=== PATIENT | female | born 1970 | race Caucasian/White ===

== ENCOUNTER → 2016-11-22 | Outpatient (CLI) | payer OTHER ==
--- NOTE | 2016-11-22 12:36 | RADIOLOGY REPORT (SQ) ---
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 TECHNIQUE: Axial images acquired through the brain without intravenous contrast. Images reviewed wi th bone, brain and subdural windows. Images stored on PACS. All CT scanners at this facility use dose modulation, iterative reconstruction, and/or weight based d osing when appropriate to reduce radiation dose to as low as reasonably achievable (ALARA). [facility]: Dose Right [facility]: CareDose [facility]: Dose Right [facility]: Teradose 4D [facility]: Smart Searchles RADIATION DOSE: Up-to-date CT equipment and radiation dose reduction techniques were employed. CTDIv ol: 49.0 mGy. DLP: 881 mGy-cm. mGy. LIMITATIONS: None. FINDINGS: VENTRICLES: Normal size and contour. CEREBRUM: No masses. No hemorrhage. No midline shift. Normal gonzalez/white matter differentiation. N o evidence for acute infarction. CEREBELLUM: No masses. No hemorrhage. No alteration of density. No evidence for acute infarction. EXTRAAXIAL SPACES: No fluid collections. No masses. ORBITS AND GLOBE: No intra- or extraconal masses. Normal contour of globe without masses. CALVARIUM: No fracture. PARANASAL SINUSES: No fluid or mucosal thickening. SOFT TISSUES: No mass or hematoma. OTHER: No other significant finding. IMPRESSION: NORMAL BRAIN CT WITHOUT CONTRAST. TECHNICAL DOCUMENTATION: JOB ID: [id number] Quality ID # 436: Final reports with documentation of one or more dose reduction techniques (e.g., Au tomated exposure control, adjustment of the mA and/or kV according to patient size, use of iterative reconstruction technique) 2010 [employer]- All Rights Reserved
== END ==
LOC: RAD 12:06
PROVIDERS: ATTEND Nurse Practitioner Family
DX: G44.011 Episodic cluster headache, intractable (principal)
CPT/HCPCS: 70450

== ENCOUNTER → 2017-11-16 | Day surgery (SDC) | payer OTHER ==
[~2017-11-16] MED LIST: LIDOCAINE 1%/EPINEPHRINE INJ 20 ML VIAL ONE
--- NOTE | 2017-11-16 11:42 | Discharge Summary ---
Discharge Summary (SDC) - Discharge Final Diagnosis: Microcalcifications left breast Date of Surgery: 11/16/17 Discharge Date: 11/16/17 Condition: Good Treatment or Instructions: Wear supportive bra; follow-up with [facility], Dr. Harry , in 1 week; patient did take Tylenol or Motrin as needed pain Referrals: JENNA JOSE, SUPERVISOR METALIZING [Primary Care Provider] - Discharge Diet: As Tolerated Discharge Activity: Activity As Tolerated Home Care Assistance: None Needed Report the Following to Your Physician Immediately: Shortness of Breath, Increase in Pain, Fever over 101 Degrees
--- NOTE | 2017-11-16 11:46 | Operative Report ---
Operative Report DATE OF SURGERY: 11/16/17 PREOPERATIVE DIAGNOSIS: Microcalcifications left breast POSTOPERATIVE DIAGNOSIS: Same OPERATION: Stereotactically directed incisional myomotomy and core biopsies left breast; interpretation of intraoperative mammography; placement of clip marker left breast 1 o'clock position SURGEON: SAMMY HARDY ANESTHESIA: Local TISSUE REMOVED OR ALTERED: Multiple coarse left breast COMPLICATIONS: None ESTIMATED BLOOD LOSS: Scant PROCEDURE: Patient was taken from the radiology waiting area to the stereotactic procedure room where the left breast was placed in compression. A CC approach was taken and the suspicious area of microcalcifications 1 o'clock position central breast was localized. Surgical plan surgical timeout conducted. Left breast surface was prepped with Betadine and anesthetized with 1% lidocaine with epinephrine. A mammotomy was made with 11 blade, and the mammotome advanced to the appropriate depth. Pre-and post fire film showed excellent localization of the mammotome to the microcalcifications. We now performed stereotactically directed biopsy in a circumferential fashion obtaining approximately 12 cores. The cores were placed in a Nallely dish in the imaged using the portable imaging device. Target microcalcifications were present in multiple cores. We now placed a clip marker in the breast and concluding photographs showed evacuation of microcalcifications from the target area and retention of the clip marker at the biopsy cavity. Result the operation was complete. Patient tolerated procedure well. Discharge instructions provided.
== END ==
LOC: RAD 10:08
PROVIDERS: ATTEND Surgery
DX: R92.0 Mammographic microcalcification found on diagnostic imaging of breast (principal); Z80.3 Family history of malignant neoplasm of breast; N62 Hypertrophy of breast; N60.22 Fibroadenosis of left breast
CPT/HCPCS: 88342 ×2; 88341 ×2; 88305 ×2; 19081; J3490

== ENCOUNTER → 2018-01-19 | Outpatient (CLI) | payer OTHER ==
--- NOTE | 2018-01-19 13:14 | RADIOLOGY REPORT (SQ) ---
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 RENAL FUNCTION: None required. The patient is less than 50 years old. TECHNIQUE: MR imaging performed with a dedicated breast coil. Pre contrast T1 and T2 weighted images . Pre contrast and post contrast enhanced T1 weighted images with fat saturation. Subtraction images, 3D thick and thin MIPS, and kinetic analysis performed on an independent workstat ion. ([employer] workstation) Magnet strength: 1.5 T LIMITATIONS: None. FINDINGS: BREAST DENSITY: b. There are scattered areas of fibroglandular density. BACKGROUND PARENCHYMAL ENHANCEMENT:Minimal. RIGHT BREAST: No enhancing or suspicious masses. No clumped, regional/segmental ductal enhancement. 10 mm retroareolar simple breast cyst 12 o'clock position, 8 mm retroareolar simple breast cyst 7 o 'clock position CHEST WALL: Normal tissue planes. No abnormal internal mammary nodes. AXILLA: Normal axillary and retro-pectoral nodes. LEFT BREAST:No enhancing or suspicious masses. No clumped, regional/segmental ductal enhancement. Biopsy clip left breast 12 to 1 o'clock position 5 cm from the nipple on axial T1 image 102. No asso ciated masses or enhancement. Multiple less than 1 cm central retroareolar breast parenchymal cysts. CHEST WALL: Normal tissue planes. No abnormal internal mammary nodes. AXILLA: Normal axillary and retro-pectoral nodes. OTHER:No identified liver, bone, or lung lesions. No other significant incidental findings. IMPRESSION: NORMAL MR OF THE BREASTS. BIRAD: RIGHT BREAST: 2 Benign findings. LEFT BREAST: 2 Benign findings. RECOMMENDATION: RECOMMENDED FOLLOW-UP: As per Dr. Harry TECHNICAL DOCUMENTATION: JOB ID: [id number] [employer]- All Rights Reserved Reading location - IP/workstation name: [email or web address]
== END ==
LOC: RAD 01-10 09:51
PROVIDERS: ATTEND Surgery
DX: N60.02 Solitary cyst of left breast (principal); N60.01 Solitary cyst of right breast
CPT/HCPCS: A9576; C8906; 77059

== ENCOUNTER 2018-02-15 09:44 | Day surgery (SDC) | payer OTHER ==
[2018-02-12 09:23] LABS: HEMATOCRIT 40.8 % (36.0-47.0); HEMOGLOBIN 13.9 g/dL (12.0-15.5); MEAN CORPUSCULAR HEMOGLOBIN 30.6 pg (27.0-33.4); MEAN CORPUSCULAR HGB CONC 34.2 g/dL (32.0-36.0); MEAN CORPUSCULAR VOLUME 89 fl (80-97); PLATELET COUNT 229 10^3/uL (150-450); RED BLOOD COUNT 4.56 10^6/uL (3.72-5.28); RED CELL DISTRIBUTION WIDTH 13.7 % (11.5-14.0); WHITE BLOOD COUNT 5.2 10^3/uL (4.0-10.5)
--- NOTE | 2018-02-12 13:18 | EKG REPORT ---
SEVERITY:- ABNORMAL ECG - SINUS RHYTHM VENTRICULAR PREMATURE COMPLEXES BORDERLINE INFERIOR Q WAVES BORDERLINE T ABNORMALITIES, ANTERIOR LEADS : Confirmed by: Jensen Ferreira MD 12-Feb-2018 13:17:24
[~2018-02-15 09:44] MED LIST changes: +CEFAZOLIN 1 GM/D5W RTU 1 GM/50 ML RTUPB IV ONE; +CEFAZOLIN 1 GM/D5W RTU 1 GM/50 ML RTUPB IV PRN; +DEXAMETHASONE SOD PHOSPHATE INJ 4 MG/1 ML VIAL ONE; +LACTATED RINGERS 1000 ML IV PRN; +LIDOCAINE 0.5% INJ-PF (5 MG/ML) 50 ML SDV SUBCUT PRN; -LIDOCAINE 1%/EPINEPHRINE INJ 20 ML VIAL ONE; +ONDANSETRON HCL INJ/PF 4 MG/2 ML SDV ONE
[2018-02-15] MEDS ORDERED: LIDOCAINE 1% INJ-PF (10 MG/ML) 30 ML SDV ONE (09:58)
[2018-02-15] MEDS ORDERED: LIDOCAINE 1%/EPINEPHRINE INJ 20 ML VIAL ONE (10:49)
[2018-02-15] MEDS ORDERED: MICROFIBRILLAR COLLAGEN 1 GM PACK ONE (10:49)
[2018-02-15] MEDS ORDERED: MIDAZOLAM 2 MG/2 ML INJ ONE (12:21)
[2018-02-15] MEDS ORDERED: MORPHINE SULFATE 10 MG/ML INJ ONE (12:21)
[2018-02-15] MEDS ORDERED: FENTANYL CITRATE INJ/PF 100 MCG/2 ML AMPUL ONE (12:21)
[2018-02-15] MEDS ORDERED: PROPOFOL INJ 200 MG/20 ML VIAL IV ONE (12:21)
[2018-02-15] MEDS ORDERED: DIPHENHYDRAMINE HCL 50 MG/ML VIAL IV PRN (12:51)
[2018-02-15] MEDS ORDERED: PROMETHAZINE HCL INJ 25 MG/1 ML VIAL IV PRN ×2 (12:51)
[2018-02-15] MEDS ORDERED: MORPHINE SULFATE 10 MG/ML INJ IV PRN (12:51)
[2018-02-15] MEDS ORDERED: OXYCODONE-ACETAMINOPHEN 5-325 MG TABLET PO PRN ×3 (12:51→13:28)
[2018-02-15] MEDS ORDERED: MEPERIDINE HCL/PF INJ 25 MG/1 ML DISP.SYRIN IV PRN (12:51)
[2018-02-15] MEDS ORDERED: FENTANYL CITRATE INJ/PF 100 MCG/2 ML AMPUL IV PRN ×3 (12:51)
--- NOTE | 2018-02-15 13:28 | Discharge Summary ---
Discharge Summary (SDC) - Discharge Final Diagnosis: Left breast cancer Date of Surgery: 02/15/18 Discharge Date: 02/15/18 Condition: Stable Treatment or Instructions: [facility] [address], [place] [address] Care Instructions Following Your Lumpectomy Activities: Resume normal activities when you feel comfortable. It is best to remain as active as possible to speed your recovery. It is common to experience some fatigue after surgery and you may find that short naps are helpful. Avoid strenuous activity such as weight lifting, tennis, etc at your surgical site for two weeks. Perform gentle arm exercises daily and do not favor your operative arm to due increased risk of mobility issues postoperatively. No driving for 7 days after surgery. Do not drive if you are taking pain medication other than Tylenol or Ibuprofen. No swimming, tub baths or soaking in a hot tub for 4 weeks. There are no dietary restrictions. Do not smoke as this impairs wound healing. Surgical Site care: You may shower in 24 hours to include washing the wound with soap and water using your hands. Leave skin glue intact. Do not scrub the incision. Pat the area dry with a towel. You do not need to recover the wound although some patients find that they feel more comfortable using a light dressing for a few days to absorb any minimal drainage which may occur. Many patients also find that keeping a dressing around the drain exit site is helpful to absorb any drainage which may leak around the tubing. If you use a dressing in this manner change it at least every day. Do not use heating pad or apply an ice pack to the operative site. You may apply deodorant if you are careful to avoid getting it on the wound itself. Medications: Take Motrin (ibuprofen) 600 mg to 800 mg every 8 hours around the clock. You may taper this medication as you experience less pain. Take Toradol 10 mg one pill by mouth every six hours as needed for pain. Resume all of your normal prescription medications after your surgery unless instructed otherwise. You may experience constipation after surgery while taking pain medications. If using a narcotic on a regular basis, take a stool softener such as Colace twice a day. It is helpful to stay hydrated by drinking lots of fluids. Walking is also helpful and is good exercise after surgery. If you need extra help, use Milk of Magnesia according to the directions on the package. Follow-up: Call our office at to make a follow-up appointment in 10-14 days. Your doctor will call to discuss the pathology report with you as soon as it is available. Concerns: Some bruising may occur and will go away over time. If you have a fever of 101.5 or greater, chills, redness at the incision site, excessive drainage from your wound or severe pain not relieved by pain medication, call your doctor. A physician is available 24 hours a day 7 days a week in addition to regular office hours. If problems arise after normal office hours please call the hospital at . Please call if you have any questions or concerns. Prescriptions: Ketorolac Tromethamine [Toradol 10 mg Tablet] 10 mg PO Q6HP PRN #20 tablet PRN Reason: Referrals: JENNA JOSE FHA UNDERWRITER [Primary Care Provider] - Discharge Diet: As Tolerated Discharge Activity: Walk Frequently Report the Following to Your Physician Immediately: Fever over 101 Degrees, Unusual Bleeding, Redness, Swelling, Warmth, Drainage-Foul Smelling
--- NOTE | 2018-02-15 13:29 | Operative Report ---
Operative Report DATE OF SURGERY: 02/15/18 PREOPERATIVE DIAGNOSIS: 1. Atypical ductal hyperplasia left breast with microcalcification. 2. Strong family history of breast cancer POSTOPERATIVE DIAGNOSIS: Same OPERATION: 1. Needle localized open left breast biopsy. 2. Interpretation of intraoperative specimen radiograph SURGEON: SAMMY HARRY 1ST DIRECTOR FINANCIAL PLANNING: SOLEDAD JAIMES ANESTHESIA: GA TISSUE REMOVED OR ALTERED: Left open breast biopsy specimen, wires and clip marker COMPLICATIONS: None ESTIMATED BLOOD LOSS: Scant INTRAOPERATIVE FINDINGS: See below PROCEDURE: The patient was seen in the preop holding area after having undergone needle localization of the the stereotactically placed clip in the left breast, as well as microcalcifications by Dr. Waldrop. 2 needles were placed in the craniocaudal direction, and reviewed by Dr. Harry. The patient was then taken to the main operating room where general anesthesia was induced. Left arm was abducted, needle hub was clipped with wire brush operator, and left breast prepped and draped in sterile fashion. Surgical plan surgical timeout were conducted. The skin was Doretha times with the quarter percent Marcaine. An Approximately 4 cm incision was made in curvilinear fashion encompassing the previous stereotactic biopsy wound, and both needles. Superior inferior medial and lateral skin flaps were raised with electrocautery dissection. Using intraoperative review of preop radiographs as a guide, we performed a central breast lumpectomy approximately 4 x 6 x 6 cm including both needles, both wires. The specimen was then removed from the left breast, labeled with a short suture in the superior position, long suture in the lateral position. We then performed intraoperative specimen radiograph of the portable machine. 2 images were taken one with the specimen in the anatomic position, and the second radiograph rotating the specimen to the patient's right side by 90 degrees. The radiographs demonstrate a retention of both localization needles, both wires, and the stereotactic clip marker, as well as several microcalcifications. The specimen interpretation was reviewed with Dr. Waldrop , radiologist, who concurred. We felt the operation was complete. We checked the wound for any bleeding there was none. Sponge and counts are correct. Wounds closed with 3-0 Vicryl Dermabond glue. Patient taught procedure well, taken recovery in stable condition. The physician home care assistant, Ms. Ortega, provided assistance during this case by: Assisting retracting tissue, instillation of local anesthesia and closure of skin incisions.
[2018-02-15] MEDS ORDERED: OXYCODONE-ACETAMINOPHEN 5-325 MG TABLET ONE (14:35)
[2018-02-15 15:25] VITALS: BP 120/79
--- NOTE | 2018-02-22 14:38 | WOMENS IMAGING REPORT ---
EXAM DESCRIPTION: WIRE LOC MAMMO; BREAST SPECIMEN; LEFT DIAGNOSTIC MAMMO W/CAD COMPLETED DATE/TIME: 02/15/2018 4:16 pm; 02/15/2018 1:29 pm; 02/15/2018 11:48 am REASON FOR STUDY: LEFT NEEDLE LOC; LEFT BREAST SPECIMEN BX IN OR; PRE NEEDLE LOCALIZATION R92.[address] Lugo R92.0 MAMMOGRAPHIC MICROCALCIFICATION FOUND ON DX IMAGING OF COMPARISON: Stereotactic biopsy with post biopsy mammograms 11/16/2017 TECHNIQUE: The stereotactic biopsy clip in the left breast was localized mammographically using a g rid marker. The skin of the breast was prepped in sterile fashion and local anesthesia was provided. The localization needle was advanced to the target. The tip was positioned adjacent to the target and confirmed with two orthogonal views. Calcifications in the left breast just ventral to the stere otactic clip form also localized using the grid marker. A 2nd localization needle was advanced to th e calcifications, the tip was positioned adjacent to the calcifications and confirmed with 2 orthogon al views. Surgical dye was not injected for this procedure. The wire was placed through the needle and the hook engaged. Post procedure mammogram demonstrates satisfactory position of the needle and w riaz. Specimen radiograph demonstrates the intact localization wire as well as the targeted lesion within t he biopsy specimen. LIMITATIONS: None. FINDINGS: Procedure as above. Pathology: Ductal carcinoma in situ IMPRESSION: SUCCESSFUL NEEDLE LOCALIZATION OF THE LESION IN THE LEFT BREAST. FOLLOW-UP PER THE P THOMAS'S SURGEON. COMMENT: BI-RADS 6, known malignancy, appropriate action should be taken TECHNICAL DOCUMENTATION: JOB ID: [id number] [employer]- All Rights Reserved Reading location - IP/workstation name: [email or web address]
--- NOTE | 2018-02-22 14:38 | WOMENS IMAGING REPORT ---
EXAM DESCRIPTION: WIRE LOC MAMMO; BREAST SPECIMEN; LEFT DIAGNOSTIC MAMMO W/CAD COMPLETED DATE/TIME: 02/15/2018 4:16 pm; 02/15/2018 1:29 pm; 02/15/2018 11:48 am REASON FOR STUDY: LEFT NEEDLE LOC; LEFT BREAST SPECIMEN BX IN OR; PRE NEEDLE LOCALIZATION R92.[address] Lugo R92.0 MAMMOGRAPHIC MICROCALCIFICATION FOUND ON DX IMAGING OF COMPARISON: Stereotactic biopsy with post biopsy mammograms 11/16/2017 TECHNIQUE: The stereotactic biopsy clip in the left breast was localized mammographically using a g rid marker. The skin of the breast was prepped in sterile fashion and local anesthesia was provided. The localization needle was advanced to the target. The tip was positioned adjacent to the target and confirmed with two orthogonal views. Calcifications in the left breast just ventral to the stere otactic clip form also localized using the grid marker. A 2nd localization needle was advanced to th e calcifications, the tip was positioned adjacent to the calcifications and confirmed with 2 orthogon al views. Surgical dye was not injected for this procedure. The wire was placed through the needle and the hook engaged. Post procedure mammogram demonstrates satisfactory position of the needle and w riaz. Specimen radiograph demonstrates the intact localization wire as well as the targeted lesion within t he biopsy specimen. LIMITATIONS: None. FINDINGS: Procedure as above. Pathology: Ductal carcinoma in situ IMPRESSION: SUCCESSFUL NEEDLE LOCALIZATION OF THE LESION IN THE LEFT BREAST. FOLLOW-UP PER THE P THOMAS'S SURGEON. COMMENT: BI-RADS 6, known malignancy, appropriate action should be taken TECHNICAL DOCUMENTATION: JOB ID: [id number] [employer]- All Rights Reserved Reading location - IP/workstation name: [email or web address]
== END 2018-02-15 15:35 | disposition home or self-care (01) ==
LOC: OROUT 09:44
PROVIDERS: ATTEND Surgery
DX: D05.12 Intraductal carcinoma in situ of left breast (principal); I48.91 Unspecified atrial fibrillation; Z80.3 Family history of malignant neoplasm of breast; G43.909 Migraine, unspecified, not intractable, without status migrainosus; F41.0 Panic disorder [episodic paroxysmal anxiety]
CPT/HCPCS: 93005; 36415; 85027; 81025; 88342 ×2; 88307 ×2; 93010; 19281; 76098; 77065; 19101; J2250; J0690; J1100; J3490 ×2; J2270; J2405; J2704; 400; J3010

== ENCOUNTER → 2018-04-26 | Outpatient (CLI) | payer OTHER ==
[2018-04-26 16:32] LABS: ABSOLUTE EOSINOPHILS # (AUTO) 0.1 10^3/uL (0.0-0.6); ABSOLUTE LYMPHOCYTES (AUTO) 2.2 10^3/uL (0.5-4.7); ABSOLUTE MONOCYTES (AUTO) 0.5 10^3/uL (0.1-1.4); ABSOLUTE NEUT (AUTO) 4.7 10^3/uL (1.7-8.2); BASOPHILS % (AUTO) 0.3 % (0-2); EOSINOPHILS % (AUTO) 0.8 % (0-6); HEMATOCRIT 39.5 % (36.0-47.0); HEMOGLOBIN 13.6 g/dL (12.0-15.5); LYMPHOCYTES % (AUTO) 29.7 % (13-45); MEAN CORPUSCULAR HEMOGLOBIN 30.9 pg (27.0-33.4); MEAN CORPUSCULAR HGB CONC 34.5 g/dL (32.0-36.0); MEAN CORPUSCULAR VOLUME 89 fl (80-97); MONOCYTES % (AUTO) 6.4 % (3-13); PLATELET COUNT 220 10^3/uL (150-450); RED BLOOD COUNT 4.42 10^6/uL (3.72-5.28); RED CELL DISTRIBUTION WIDTH 13.6 % (11.5-14.0); SEGMENTED NEUTROPHILS % (AUTO) 62.8 % (42-78); TOTAL CELLS COUNTED % (AUTO) 100 %; WHITE BLOOD COUNT 7.5 10^3/uL (4.0-10.5)
== END ==
LOC: OD 15:11
PROVIDERS: ATTEND Radiology Radiation Oncology
DX: D05.12 Intraductal carcinoma in situ of left breast (principal); Z17.0 Estrogen receptor positive status [ER+]
CPT/HCPCS: 36415; 85025

== ENCOUNTER 2018-11-21 07:58 | Day surgery (SDC) | payer OTHER ==
[2018-11-07 10:54] LABS: HEMATOCRIT 38.5 % (36.0-47.0); MEAN CORPUSCULAR HEMOGLOBIN 30.3 pg (27.0-33.4); MEAN CORPUSCULAR HGB CONC 33.7 g/dL (32.0-36.0); MEAN CORPUSCULAR VOLUME 90 fl (80-97); PLATELET COUNT 185 10^3/uL (150-450); RED BLOOD COUNT 4.27 10^6/uL (3.72-5.28); WHITE BLOOD COUNT 5.4 10^3/uL (4.0-10.5)
--- NOTE | 2018-11-08 08:08 | EKG REPORT ---
SEVERITY:- BORDERLINE ECG - SINUS RHYTHM VENTRICULAR PREMATURE COMPLEX BORDERLINE T ABNORMALITIES, ANTERIOR LEADS : Confirmed by: La Arreaga MD 07-Nov-2018 21:30:27
[~2018-11-21 07:58] MED LIST changes: -CEFAZOLIN 1 GM/D5W RTU 1 GM/50 ML RTUPB IV ONE; -CEFAZOLIN 1 GM/D5W RTU 1 GM/50 ML RTUPB IV PRN; -DEXAMETHASONE SOD PHOSPHATE INJ 4 MG/1 ML VIAL ONE; -LACTATED RINGERS 1000 ML IV PRN; -LIDOCAINE 0.5% INJ-PF (5 MG/ML) 50 ML SDV SUBCUT PRN; +MIDAZOLAM 2 MG/2 ML INJ ONE; -ONDANSETRON HCL INJ/PF 4 MG/2 ML SDV ONE; +PROPOFOL INJ 200 MG/20 ML VIAL IV ONE
[2018-11-21] MEDS ORDERED: ONDANSETRON HCL INJ/PF 4 MG/2 ML SDV IV PRN (12:46)
--- NOTE | 2018-11-21 13:22 | Operative Report ---
Operative Report DATE OF SURGERY: 11/21/18 PREOPERATIVE DIAGNOSIS: 1. Increased lifetime risk for colorectal carcinoma. 2. Strong family history of breast cancer. 3. Personal history of noninvasive breast cancer POSTOPERATIVE DIAGNOSIS: Lateral cecal wall abnormality, otherwise normal colono scopy OPERATION: 1. Total colonoscopy to cecum with photodocumentation. 2. Cold forceps biopsy lateral cecal wall SURGEON: SAMMY HARDY ANESTHESIA: LMAC TISSUE REMOVED OR ALTERED: Mucosal biopsy COMPLICATIONS: None ESTIMATED BLOOD LOSS: Scant INTRAOPERATIVE FINDINGS: See below PROCEDURE: Obtaining informed consent the patient was taken from the preoperative holding area to the main endoscopy suite where monitoring devices were attached to the patient. Plan and surgical timeout were conducted The patient was placed in the left lateral decubitus position with knees to chest. A perianal examination was performed. There was no visible or palpable anorectal pathology. Sphincter tone was felt to be normal. The flexible adult colonoscope was advanced through the anal rectal canal, all the way to the cecum. Visualization of the cecum was achieved and the ileocecal valve, the appendiceal orifice and transillumination of the anterior abdominal wall. This was an excellent study on the well-prepped bowel; there was some moderate amount of fine particulate which washed out easily. On the lateral cecal wall with slight abnormality of the mucosa, photographed, and biopsied x2 with cold forceps device. Specimen was sent to pathology for permanent analysis as lateral cecal wall.. The colonoscope was withdrawn slowly and methodically checked and the mucosa carefully. There was no evidence of tumor, stricture, bleeding or polyp. There was no evidence of diverticuloses. The scope was slowly withdrawn through the anal rectal canal. Complete visualization of the rectum was achieved with photodocumentation. The scope was retroflexed in the anorectal canal. No other pathology seen. The scope was withdrawn to the patient's anus. The patient tolerated the pr ocedure well and was taken to the recovery area in stable condition. Follow-up colonoscopy will depend upon the final pathology report of the cecal biopsy.
--- NOTE | 2018-11-21 13:25 | Discharge Summary ---
Discharge Summary (SDC) - Discharge Final Diagnosis: Cecal mucosal abnormality otherwise normal colon Date of Surgery: 11/21/18 Discharge Date: 11/21/18 Condition: Good Treatment or Instructions: [place] [id number] POST ENDOSCOPY DISCHARGE INSTRUCTIONS 1. Diet: Start clear liquids that a regular diet as tolerated. 2. Resume all preoperative medications. All oral anticoagulants and aspirins can be resumed 24 hours after procedure. 3. If a polypectomy was performed some bleeding per rectum may occur. This should stop within 3 days. If not, please contact the office. 4. If you had a colonoscopy you may experience some bloating and delayed return of normal bowel function for several days, your regular bowel movement pattern should resume within a week. 5. Please contact [facility] at to make an ap pointment with Dr. Harry for 1 to 3 weeks following procedure. 6. If you have any questions or concerns regarding your care,treatment plan or follow up, please contact our office. 7. Per clinical guidelines we recommend you undergo a repeat colonoscopy in 3 to 5 years pending final pathology report on cecal biopsy Referrals: JENNA JOSE NP [Primary Care Provider] - Discharge Diet: As Tolerated Discharge Activity: Activity As Tolerated Home Care Assistance: None Needed Report the Following to Your Physician Immediately: Shortness of Breath, Increase in Pain, Fever over 101 Degrees
[2018-11-21 14:35] VITALS: BP 124/84
== END 2018-11-21 14:20 | disposition home or self-care (01) ==
LOC: OROUT 07:58
PROVIDERS: ATTEND Surgery
DX: D12.0 Benign neoplasm of cecum (principal); Z83.71 Family history of colonic polyps; Z15.89 Genetic susceptibility to other disease; G43.909 Migraine, unspecified, not intractable, without status migrainosus; I49.3 Ventricular premature depolarization; I48.91 Unspecified atrial fibrillation; Z80.3 Family history of malignant neoplasm of breast; Z87.891 Personal history of nicotine dependence; Z79.899 Other long term (current) drug therapy; Z85.3 Personal history of malignant neoplasm of breast
CPT/HCPCS: 45380; 93005; 36415; 85027; 81025; 88305 ×2; 93010; 00811; J2250; J2704; 811

== ENCOUNTER → 2019-10-14 | Outpatient (CLI) | payer OTHER ==
[~2019-10-14] MED LIST changes: -MIDAZOLAM 2 MG/2 ML INJ ONE; -PROPOFOL INJ 200 MG/20 ML VIAL IV ONE; +REGADENOSON INJ 0.4 MG/5 ML DISP.SYRIN IV ONE
--- NOTE | 2019-10-14 14:07 | DRAGON STRESS TEST REPORT ---
Pharmacological nuclear stress test Date: October 14, 2019 Referring physician: Car Redding MD Performing physician: Car Redding MD Indication: Chest pain Clinical history 48-year-old lady with chest pain. We decided to proceed with pharmacological nuclear stress test. Procedure The patient presented to the stress lab. Initially rest images were obtained according to standard protocol after the injection of 13.57 millicurie technetium 99m sestamibi. Subsequently the patient underwent pharmacological stress utilizing 0.4 mg of regadenoson intravenously. The patient's EKG and vital signs were monitored throughout the procedure. Subsequently patient was injected with 41 millicuries of technetium 99m sestamibi. After a period of rest, stress images were obtained according to standard protocol. EKG showed sinus rhythm at 91 beats per minute. The patient's stress EKG did not show any evidence for myocardial ischemia. There were no arrhythmias observed. Raw as well as processed rest and stress images were reviewed. There was mild to moderate gut uptake which did not interfere with the study. The rest and stress images show uniform uptake of radioactive isotope without any fixed or reversible defects to suggest myocardial ischemia or myocardial infarction. Attenuation correction was available for the study. There is normal contractility post-rest. The calculated ejection fraction is 44 %. Visually ejection fraction appears normal. The TID ratio is 0.86. Conclusion The stress EKG is negative for myocardial ischemia There is no scintigraphic evidence of myocardial infarction or ischemia provoked by pharmacological stress. There is normal contractility post-stress. The gated left ventricular ejection fraction is 44 %. Visually ejection fraction appears normal The patient will be given an appointment to discuss these results. [facility]
--- NOTE | 2019-10-14 14:58 | XCELERA REPORT ---
[address] [address] Transthoracic Echocardiogram Report Name: TATA HERRERA Age: 48 yrs Gender: Female : 1970 Patient Status: Outpatient Patient Location: [facility] Study Date: 10/14/2019 10:46 AM History: Palpitations Chets pain Height: 62 in Weight: 197 lb BSA: 1.9 m2 Procedure: A complete two-dimensional transthoracic echocardiogram was performed (2D, M-mode, spectral and color flow Doppler). The study was technically difficult with many images being suboptimal in quality. Reason For Study: PALPITATIONS Previous Evaluation: No previous studies were available. History: Chest pain. Ordering Physician: JAIR REDDING Performed By: Alvaro Roberts Interpretation Summary The Ejection Fraction estimate is 50-55% Left ventricular systolic function is low normal. The right ventricle is normal in size and function. There is a trace amount of mitral regurgitation There is no aortic valve stenosis There is a trace amount of tricuspid regurgitation Doppler findings do not suggest pulmonary hypertension. There is no pericardial effusion. MMode/2D Measurements & Calculations RVDd: 3.2 cm LVIDd: 5.4 cm FS: 25.2 % Ao root diam: 2.9 cm IVSd: 0.79 cm LVIDs: 4.1 cm EDV(Teich): 142.4 ml Ao root area: 6.5 cm2 LVPWd: 0.82 cm ESV(Teich): 72.2 ml LA dimension: 3.6 cm EF(Teich): 49.3 % Doppler Measurements & Calculations MV E max mando: MV P1/2t max mando: Ao V2 max: LV V1 max P.0 cm/sec 86.2 cm/sec 130.3 cm/sec 3.9 mmHg MV A max mando: MV P1/2t: 48.0 msec Ao max PG: LV V1 max: 82.9 cm/sec MVA(P1/2t): 4.6 cm2 6.8 mmHg 98.2 cm/sec MV E/A: 0.96 MV dec slope: 526.4 cm/sec2 MV dec time: 0.15 sec PA V2 max: MV P1/2t-pr_phl: 117.5 cm/sec 48.0 msec PA max P.5 mmHg Left Ventricle The left ventricle is grossly normal size. The Ejection Fraction estimate is 50-55%. Left ventricular systolic function is low normal. Doppler measurements suggest impaired left ventricular relaxation, which is associated with grade I/IV or mild diastolic dysfunction. No regional wall motion abnormalities noted. Right Ventricle The right ventricle is normal in size and function. Mitral Valve The mitral valve is grossly normal. There is a trace amount of mitral regurgitation. Aortic Valve The aortic valve is normal in structure and function. The aortic valve is trileaflet. The aortic valve opens well. There is no aortic valve stenosis. No aortic regurgitation is present. Tricuspid Valve The tricuspid valve is normal in structure and function. There is a trace amount of tricuspid regurgitation. Doppler findings do not suggest pulmonary hypertension. Pulmonic Valve The pulmonic valve is not well visualized. There is a trace amount of pulmonic regurgitation. Great Vessels The aortic root is normal size. The inferior vena cava was not well visualized. Effusions There is no pericardial effusion. : JAIR REDDING Anil
== END ==
LOC: RAD 07:26
PROVIDERS: ATTEND Internal Medicine
DX: R00.2 Palpitations (principal); I25.9 Chronic ischemic heart disease, unspecified; Z01.810 Encounter for preprocedural cardiovascular examination
CPT/HCPCS: 93306; 93017; 78452; A9500; J2785; Q9969